=== PATIENT | female | born 2000 | race Caucasian/White ===

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

== ENCOUNTER → 2021-04-19 14:58 | Outpatient (CLI) | payer OTHER, SELFPAY ==
[2021-04-19 16:29] LABS: HCG,Quantitative 1382 mIU/ml (0-5.42)
== END ==
PROVIDERS: Visit Provider Obstetrics & Gynecology
DX: Z32.01 Encounter for pregnancy test, result positive (principal)
CPT/HCPCS: 36415; 84702

== ENCOUNTER → 2021-04-21 16:14 | Outpatient (CLI) | payer OTHER, SELFPAY ==
[2021-04-21 17:58] LABS: HCG,Quantitative 4087 mIU/ml (0-5.42)
== END ==
PROVIDERS: Visit Provider Obstetrics & Gynecology
DX: Z34.90 Encounter for supervision of normal pregnancy, unspecified, unspecified trimester (principal)
CPT/HCPCS: 36415; 84702

== ENCOUNTER → 2021-05-13 14:14 | Outpatient (CLI) | payer OTHER, SELFPAY ==
--- NOTE | 2021-05-13 14:14 | US_ITS ---
PROCEDURE: US OB <= 14 WEEKS FETUS CLINICAL INDICATION: dates Early Ob ultrasound COMPARISON: No exams were available for comparison FINDINGS: An intrauterine gestational sac is present with a pole with a crown-rump length of 1.78cm correlating to gestational age of 8weeks 2days. heart tones are present with an FHR of 174bpm. Yolk sac is noted. Along the cephalic portion of the gestational sac there is a crescentic fluid collection which may represent a subchorionic bleed. This area measures 5 mm in thickness and 11 mm in length. No cul-de-sac fluid apparent. Unremarkable adnexa. IMPRESSION: Live IUP at eight weeks 2 days Estimated due date by Ultrasound is 12/21/2021 Possible small subchorionic bleed Dictated by: Phu Askew MD 05/13/2021 17:02 Phu Askew MD in [place] 05/13/2021 17:02
== END ==
PROVIDERS: Visit Provider Obstetrics & Gynecology
DX: Z34.90 Encounter for supervision of normal pregnancy, unspecified, unspecified trimester (principal)
CPT/HCPCS: 76801

== ENCOUNTER → 2021-05-17 15:27 | Outpatient (CLI) | payer OTHER, SELFPAY ==
[2021-05-17 15:54] LABS: Basophils # 0.1 K/mm3 (0-0.2); Basophils % 0.6 % (0.1-2.0); Eosinophils # 0.2 K/mm3 (0.0-0.4); Eosinophils % 1.7 % (0.1-12.0); Hematocrit 37.2 % (37.0-47.0); Lymphocytes # 1.6 K/mm3 (0.7-4.5); Lymphocytes % 16.9 % (10-50); Mean Corpuscular HGB Conc 34.9 g/dL (31.8-35.4); Mean Corpuscular Hemoglobin 30.5 pg (27.0-31.2); Mean Corpuscular Volume 87.4 fl (81-99); Mean Platelet Volume 9.6 fl (7.4-10.4); Monocytes # 0.4 K/mm3 (0.1-1.0); Monocytes % 4.4 % (1.7-9.3); Neutrophils # 7.1 K/mm3 (1.8-7.8); Neutrophils % 76.4 % (37.0-80.0); Platelet Count 255 K/mm3 (142-424); Red Blood Count 4.26 M/mm3 (4.20-5.40); Red Cell Distribution Width 14.2 % (11.5-17.5); White Blood Count 9.3 K/mm3 (4.5-13.0)
[2021-05-19 08:20] LABS: HIV Screen 4th Generation wRfx Non Reactive (Non Reactive); Hepatitis B Surface Antigen Negative (Negative); Hepatitis C Antibody <0.1 s/co ratio (0.0-0.9); Rubella Antibodies, IgG 4.97 index (Immune >0.99)
[2021-05-19 10:20] LABS: Rapid Plasma Reagin Ab Titer Non Reactive (NonRea<1:1)
[2021-05-19 21:15] LABS: Neisseria gonorrhoeae, NAA Negative (Negative)
== END ==
PROVIDERS: Visit Provider Obstetrics & Gynecology
DX: Z34.90 Encounter for supervision of normal pregnancy, unspecified, unspecified trimester (principal)
CPT/HCPCS: 36415; 85025; 86592; 86703; 86762; 86850; 87340; 87380; 87491; 87591; G0432

== ENCOUNTER 2021-06-05 08:22 | Emergency (ER) | payer OTHER, SELFPAY ==
[2021-06-05 08:24] VITALS: BP 139/78; PULSE 89; RESP 16; TEMP 36.9; O2SAT 98; BMI 33.5
--- NOTE | 2021-06-05 08:41 | HMH.EDGENADL ---
ED Disposition Clinical Impression: Hematemesis Qualifiers: Nausea presence: with nausea Qualified Code(s): K92.0 - Hematemesis Disposition: Home, Self-Care Condition on Discharge: Good Additional Instructions: Pepcid as prescribed. You may continue to use Zofran as prescribed by your radioactivity technician. Follow-up with your radioactivity technician next week, call Monday to make appointment. Return emergency department if vomiting of blood persists or worsens. Prescriptions: Famotidine [Pepcid 20mg Tablet] 20 mg PO DAILY #7 tab Transmission Status: Pending to [id number] Referrals: Fabio Diamond MD [Primary Care Provider] - - Critical Care Critical Care Time: No Attestation: On 06/05/21, the high probability of a clinically significant, sudden or life threatening deterioration of the following system(s) required my full and direct attention, intervention and personal management. The time I documented below is in addition to time spent performing reported procedures but includes the following listed in this critical care notation. Medical Decision Making - Medical Records Medical records reviewed: Yes: I reviewed the patient's medical records. MR Comment: Reviewed pelvic ultrasound results 05/13/2021, live IUP 8 weeks 2 days. Reviewed office note OB visit 05/17/2021. - Ermias Inquiry Pt receiving controlled substance: No Vital Signs: 06/05/21 08:24 Temperature 98.4 F Temperature Source Oral Pulse Rate [Radial] 89 Respiratory Rate 16 Blood Pressure [Right Arm] 139/78 Blood Pressure Mean [Right Arm] 98 Blood Pressure Position [Right Arm] Sitting 02 Sat by Pulse Oximetry 98 Oxygen Delivery Method Room Air - Lab Data Lab Results 06/05/21 08:38: WBC 9.0, RBC 4.35, Hgb 13.4, Hct 39.6, MCV 91.2, MCH 30.8, MCHC 33.8, RDW 14.3, Plt Count 281, MPV 10.0, Neut % (Auto) 70.5, Lymph % (Auto) 21.1, Dawson % (Auto) 5.3, Eos % (Auto) 2.4, Baso % (Auto) 0.7, Neut # (Auto) 6.4, Lymph # (Auto) 1.9, Dawson # (Auto) 0.5, Eos # (Auto) 0.2, Baso # (Auto) 0.1 06/05/21 08:38: Sodium 137, Potassium 3.8, Chloride 102, Carbon Dioxide 21 L, Anion Gap 17.8 H, BUN 8, Creatinine 0.40 L, Estimated Creat Clear 292, Estimated GFR 201, Est GFR ( Amer) 244, Glucose 102 H, Calcium 9.2, Total Bilirubin 0.3, AST 43 H, ALT 25, Alkaline Phosphatase 89, Total Protein 7.8, Albumin 4.3, Globulin 3.5 H, Albumin/Globulin Ratio 1.2 Result diagrams: 06/05/21 08:38 06/05/21 08:38 Orders (Tests/Meds): ORDERS Category Date Time Status Urinalysis and Microscopic Stat Lab 06/05/21 08:42 Ordered Medical Decision Narrative: Hemodynamically stable. Likely gastritis or Awilda-Nelson tear. She is agreeable to starting Pepcid for short course. General Adult HPI - General Stated complaint: 11 weeks vomiting blood Time Seen by Provider: 06/05/21 08:41 Mode of Arrival: Ambulatory Limitations: No Limitations Description of Symptoms (Recalled from ER Triage Doc. by RN): to ed per pvt car with c/o vomiting blood this am x 1 pt states dark color emesis. pt a approx 11 weeks preg. G1, P0, AB0. pt c/o lt side abd pain states she has been seen by track and field coach for this pain and has had an ultrasound. pt denies any other c/o at present - History of Present Illness HPI narrative: 11 weeks Prima complains of an episode of vomiting this morning which she believes had blood in it. She describes the blood is not bright red but a brown or dark red. She thinks it was about 1 tablespoon. She only vomited once this morning. She says she also vomited last night once without blood. She says she has not had problems with vomiting during her , but takes Zofran since the beginning of for bilateral abdominal pains. No passage of blood in his stool, no melena. No fever. No diarrhea. No history of gastritis or ulcers. No history of abdominal surgeries. - Related Data Home Medications Medication Instructions Recor
[2021-06-05 08:49] LABS: Basophils # 0.1 K/mm3 (0-0.2); Basophils % 0.7 % (0.1-2.0); Eosinophils # 0.2 K/mm3 (0.0-0.4); Eosinophils % 2.4 % (0.1-12.0); Hematocrit 39.6 % (37.0-47.0); Hemoglobin 13.4 g/dL (12.2-16.2); Lymphocytes # 1.9 K/mm3 (0.7-4.5); Lymphocytes % 21.1 % (10-50); Mean Corpuscular HGB Conc 33.8 g/dL (31.8-35.4); Mean Corpuscular Hemoglobin 30.8 pg (27.0-31.2); Mean Corpuscular Volume 91.2 fl (81-99); Monocytes # 0.5 K/mm3 (0.1-1.0); Monocytes % 5.3 % (1.7-9.3); Neutrophils # 6.4 K/mm3 (1.8-7.8); Neutrophils % 70.5 % (37.0-80.0); Platelet Count 281 K/mm3 (142-424); Red Blood Count 4.35 M/mm3 (4.20-5.40); Red Cell Distribution Width 14.3 % (11.5-17.5)
[2021-06-05 08:54] LABS: Alanine Aminotransferase 25 U/L (12-78); Albumin Level 4.3 g/dl (3.5-5.0); Albumin/Globulin Ratio 1.2 (1.1-1.8); Alkaline Phosphatase 89 U/L (38-126); Anion Gap 17.8 mEq/L (5-15); Aspartate Amino Transferase 43 U/L (14-36); Bilirubin,Total 0.3 mg/dl (0.2-1.3); Blood Urea Nitrogen 8 mg/dl (7-17); Calcium 9.2 mg/dl (8.4-10.2); Carbon Dioxide 21 mmol/L (22.0-30.0); Chloride 102 mmol/L (98-107); Creatinine Clearance Estimated 292 mL/min (50-200); Estimated Glomerular Filt Rate 201 ml/min (>60); GFR (African American) 244 ML/MIN (>60); Globulin 3.5 g/dL (1.3-3.2); Glucose 102 mg/dl (74-100); Potassium 3.8 mmoL/L (3.5-5.1); Sodium 137 mmol/L (136-145); Total Protein,Serum 7.8 g/dl (6.3-8.2)
--- NOTE | 2021-06-05 09:05 | PC.NURSE ---
FHT 138
[2021-06-05 09:30] VITALS: BP 123/70; PULSE 87; RESP 16; TEMP 36.6; O2SAT 98
== END 2021-06-05 09:31 | disposition home or self-care (01) ==
PROVIDERS: Emergency Provider Emergency Medicine; PCP Internal Medicine Adolescent Medicine
DX: K92.0 Hematemesis (principal); Z3A.11 11 weeks gestation of pregnancy
CPT/HCPCS: 80053; 85025; 96374; 99282

== ENCOUNTER → 2021-08-02 15:01 | Outpatient (CLI) | payer OTHER, SELFPAY ==
--- NOTE | 2021-08-02 15:04 | US_ITS ---
PROCEDURE: US OB >= 14 WEEKS FETUS CLINICAL INDICATION: OB complete COMPARISON: US US OB <= 14 WEEKS FETUS from 05/13/2021 FINDINGS: There is a single live fetus in breech presentation. heart and body motion is noted. The placenta is posterior and grade 1. No previa or abruption. The cervix is closed measuring approximately 4 cm in length. Complete survey performed and was unremarkable on the submitted images as in PACS. No discrete anomalies identified on survey imaging by technologist. Active fetus. Three-vessel cord with satisfactory umbilical cord insertion. 4- chamber heart noted. Survey of brain & ventricles Unremarkable. Face and neck survey unremarkable. Diaphragm and chest views unremarkable. Abdomen: Both kidneys noted and unremarkable. Stomach noted and satisfactory. Spine: Survey of the spine satisfactory with no anomalies identified nor imaged. Both arms and legs noted. Amniotic Fluid: Adequate. Maternal adnexa: No significant findings. Measurements: Average ultrasound age 20weeks. Gestational Age 20weeks Estimated due date by ultrasound age 0312/20/2021. Estimated weight 332g BPD = 19weeks 6days OFD = 20weeks HC = 19weeks 1day AC = 20weeks 1day FL = 20weeks 3days Growth Percentile= 60% Heart Rate = 147bpm Cerebellum = 19weeks 6days Humerus = 20weeks 2days HC/AC is 1.1 CI is 0.78 FL/BPD is 0.73 FL/AC is 0.22 IMPRESSION: Live IUP in breech presentation with an average ultrasound age of 20 weeks. No obvious anomalies. Please see above for detail. Dictated by: Phu Askew MD 08/02/2021 16:53 Phu Askew MD in [place] 08/02/2021 16:53
== END ==
PROVIDERS: PCP Internal Medicine Adolescent Medicine; Visit Provider Obstetrics & Gynecology
DX: Z34.90 Encounter for supervision of normal pregnancy, unspecified, unspecified trimester (principal)
CPT/HCPCS: 76805

== ENCOUNTER → 2021-11-26 15:34 | Outpatient (CLI) | payer OTHER, SELFPAY | PROVIDERS: Visit Provider Obstetrics & Gynecology | DX: Z34.90 Encounter for supervision of normal pregnancy, unspecified, unspecified trimester (principal) ==

== ENCOUNTER → 2021-12-06 16:31 | Outpatient (CLI) | payer OTHER, SELFPAY | PROVIDERS: Visit Provider Obstetrics & Gynecology | DX: Z34.90 Encounter for supervision of normal pregnancy, unspecified, unspecified trimester (principal) | CPT/HCPCS: 86403 ==

== ENCOUNTER → 2021-12-09 08:00 | Outpatient (CLI) | payer OTHER, SELFPAY ==
[2021-12-09 10:24] LABS: Collection Time,Urine 24 hours; Total Volume,Urine 950 mL (600-1600)
[2021-12-09 12:11] LABS: Creatinine 24 Hour,Urine 1292 mg/24hr (630-2500); Creatinine,Urine Random 136 mg/dL (Not Estab.)
[2021-12-09 12:50] LABS: Total Protein 24 Hour,Urine 247 mg/24 hr (40-90)
[2021-12-09 18:02] LABS: Creatinine Clearance Urine 244.6 mL/min (25-115); Patient Height,Urine 62 inches; Patient Weight,Urine 130 lbs
== END ==
PROVIDERS: Visit Provider Obstetrics & Gynecology
DX: Z34.90 Encounter for supervision of normal pregnancy, unspecified, unspecified trimester (principal)
CPT/HCPCS: 36415; 82575; 84155

== ENCOUNTER → 2021-12-09 08:02 | Outpatient (CLI) | payer OTHER, SELFPAY ==
--- NOTE | 2021-12-09 08:24 | US_ITS ---
FINAL REPORT CLINICAL HISTORY: BPP, Growth and ESA FINDINGS: There is a single live intrauterine gestation. Presentation is cephalic. The cervix is closed and measures 3.3 cm. Placenta is posterior and grade 2 fundal. Cardiac activity is confirmed at 163 bpm. Fetus is active. Four-chamber heart is noted. Chest and diaphragm are unremarkable. ESA: 10 cm. Amniotic fluid is echogenic of uncertain etiology. This could be seen with meconium staining. MEASUREMENTS: ULTRASOUND AGE: 38 weeks 4 days. GESTATION AGE: 38 weeks 2 days. ESTIMATED WEIGHT: 7 lbs. 11 oz. GROWTH PERCENTILE: 67% BPD: 38 weeks 4 days. OFD: 39 weeks 3 days. HC: 37 weeks 4 days. AC: 38 weeks 0 days. FL: 39 weeks 6 days. HC/AC: 0.97 CI: 83% FL/BPD: 82% FL/AC: 23% BREATHIN/2 MOVEMENT: 2/2 TONE: 2/2 FLUID VOLUME: 2/2 BPP SCORE: 2/2 IMPRESSION: Single living IUP with an ultrasound age of 38 weeks 4 days. BPP SCORE: 8/8 Reviewed, Interpreted and Dictated by Armani Harvey III, MD Transcribed by Angie Peña Authenticated by Armani Harvey III, MD on 12/09/2021 11:38:27 AM [facility]
[2021-12-09 10:57] LABS: Basophils # 0.1 K/mm3 (0-0.2); Basophils % 0.6 % (0.1-2.0); Eosinophils # 0.1 K/mm3 (0.0-0.4); Eosinophils % 1.1 % (0.1-12.0); Hematocrit 34.1 % (37.0-47.0); Hemoglobin 10.9 g/dL (12.2-16.2); Lymphocytes # 1.8 K/mm3 (0.7-4.5); Lymphocytes % 19.7 % (10-50); Mean Corpuscular HGB Conc 31.9 g/dL (31.8-35.4); Mean Corpuscular Volume 90.9 fl (81-99); Mean Platelet Volume 11.1 fl (7.4-10.4); Monocytes # 0.6 K/mm3 (0.1-1.0); Monocytes % 6.9 % (1.7-9.3); Neutrophils # 6.7 K/mm3 (1.8-7.8); Neutrophils % 71.8 % (37.0-80.0); Platelet Count 202 K/mm3 (142-424); Red Blood Count 3.76 M/mm3 (4.20-5.40); Red Cell Distribution Width 15.9 % (11.5-17.5); White Blood Count 9.3 K/mm3 (4.8-10.8)
[2021-12-09 11:04] LABS: D-Dimer 1.33 ug/mL (0.0-0.5)
[2021-12-09 11:19] LABS: Activated Partial Thrombo Time 22.5 seconds (22.8-30.6); Fibrinogen 403 mg/dL (229.9-363.5); INR 0.86 (0.9-1.1); Prothrombin Time 9.8 seconds (10.1-12.5)
[2021-12-09 11:37] LABS: Alanine Aminotransferase 14 U/L (12-78); Anion Gap 10.2 mEq/L (5-15); Aspartate Amino Transferase 26 U/L (14-36); Blood Urea Nitrogen 8 mg/dl (7-17); Calcium 9.1 mg/dl (8.4-10.2); Carbon Dioxide 23 mmol/L (22.0-30.0); Chloride 105 mmol/L (98-107); Estimated Glomerular Filt Rate 156 ml/min (>60); GFR (African American) 188 ML/MIN (>60); Glucose 92 mg/dl (74-100); Potassium 4.2 mmoL/L (3.5-5.1); Sodium 134 mmol/L (136-145)
[2021-12-09 12:39] LABS: Amphetamine/Metha Screen,Urine Negative ng/ml (<1000)
[2021-12-09 12:40] LABS: Barbiturates Screen,Urine Negative ng/ml (<200); Benzodiazepines Screen,Urine Negative ng/ml (<200)
[2021-12-09 12:41] LABS: Cannabinoid Screen,Urine Negative ng/ml (<50)
[2021-12-09 12:42] LABS: Cocaine Screen,Urine Negative ng/ml (<300); Methadone Screen,Urine Negative ng/ml (<300)
[2021-12-09 12:43] LABS: Opiate Screen,Urine Negative ng/ml (<300)
[2021-12-09 12:44] LABS: Phencyclidine Screen,Urine Negative ng/ml (<25)
== END ==
PROVIDERS: PCP Internal Medicine Adolescent Medicine; Visit Provider Obstetrics & Gynecology
DX: Z34.90 Encounter for supervision of normal pregnancy, unspecified, unspecified trimester (principal)
CPT/HCPCS: 36415; 76816; 76819; 80048; 80305; 84450; 84460; 84550; 85025; 85378; 85384; 85610; 85730; 86850; C9803; U0003; U0005

== ENCOUNTER 2021-12-10 08:34 | Inpatient (IN) | payer OTHER, SELFPAY ==
[2021-12-10] VITALS (8 sets, daily range): BP systolic 133–152; BP diastolic 79–93; PULSE 79–110; RESP 14–18; TEMP 36.8–37.4; O2SAT 98–100; BMI 43.9; BMI 44.2
[2021-12-10 08:57] LABS: Coronavirus 19, PCR Not Detected (NotDetected); Influenza A, PCR Not Detected (NotDetected); Influenza B, PCR Not Detected (NotDetected)
--- NOTE | 2021-12-10 10:27 | HMH.HP ---
*Admission Date: 12/10/21 *Chief complaint: scheduled delivery *History of present illness: 21 yo G1 @ 38 3 admitted for scheduled delivery complicated by GHTN transitioning into preeclampsia Pelvic exam extremely narrow and incompatible with vaginal delivery Pre-admission covid testing positive, but testing negative today at admission [facility] History I have reviewed the patient's past medical history: Yes *Have you ever received a pneumonia vaccine?: No *Have you received a flu vaccine this season?: No Anesthesia experience/problems:: nac Laterality Cases: Bilateral: Tonsillectomy Other Surgeries: Yes: No Previous Surgery. No: Amputation: No Fractures: No - *Social History Smoking Status: Never smoker Alcohol Intake: never Substance Use Type: denies use *Occupational Status:: unemployed *Travel in the last 8 weeks: None Family Hx:: No significant family history, Diabetes, Heart Attack, Stroke, Hypertension, Hyperlipidemia, Coronary Artery Disease : 1 Para: 0 Review of Systems - Review of Systems Review of systems:: pertinent systems reviewed and negative unless documented below - *Genitourinary Reports other (irregular contractions) Meds Home Medications Medication Instructions Recorded Confirmed Type promethazine 12.5 mg tablet 12.5 mg PO Q4-6H PRN #30 tab 06/18/21 12/10/21 Rx Vit Calc,Iron,Folic [Kpn] 1 tab PO DAILY 12/10/21 12/10/21 History Allergies Allergy/AdvReac Type Severity Reaction Status Date / Time No Known Allergies Allergy Verified 12/09/21 09:21 Exam Vital signs and Labs for Last 24 Hours: Temp Pulse Resp BP Pulse Ox 99.3 F 84 16 152/93 H 98 12/10/21 12:05 12/10/21 12:05 12/10/21 12:05 12/10/21 12:05 12/10/21 09:07 Laboratory Results - last 24 hr 12/10/21 08:45: SARS-CoV-2 (PCR) Not detected, Influenza A Untype (PCR) Not detected, Influenza Type B (PCR) Not detected 12/10/21 09:30: Blood Type O Positive, Antibody Screen Negative I & O for Last 24 hours: Intake & Output 12/08/21 12/09/21 12/10/21 12/11/21 11:59 11:59 11:59 11:59 Intake Total 2200 / 2200 Balance 2199 / 0 Weight 242 lb - Constitutional no acute distress - *Routine HEENT Exam Head: Present: normocephalic Eye: Present: EOMI, PERRL ENT: Present: mucous membranes moist - *Routine Neck Exam Present: supple. Absent: lymphadenopathy - *Routine Respiratory Exam Present: CTA bilaterally - *Routine Cardiovascular Exam Present: RRR - *Routine Abdominal Exam Present: soft, normoactive bowel sounds. Absent: tenderness - *Routine Rectal Exam Rectal:: deferred - *Routine Genitalia Exam Genitalia:: normal female, deferred Comment:: narrow pelvic outlet - *Routine Extremities Exam Absent: cyanosis, clubbing, edema - *Routine Skin Exam Present: warm. Absent: rash - *Routine Neurological Exam Present: alert, oriented X3 Assessment and Plan (1) 38 weeks gestation of Status: Acute Category: Medical Code(s): Z3A.38 - 38 weeks gestation of (2) Insufficient care Problem details: large gaps between appointments 1 hr GCT not done Status: Acute Category: Medical Code(s): O09.30 - Supervision of with insufficient care, unspecified trimester (3) Gestational hypertension Status: Acute Category: Medical Code(s): O13.9 - Gestational [-induced] hypertension without significant proteinuria, unspecified trimester (4) CPD (cephalo-pelvic disproportion) Status: Acute Category: Medical Code(s): O33.9 - Maternal care for disproportion, unspecified (5) Morbid obesity with body mass index (BMI) of 40.0 or higher Status: Acute Category: Medical Code(s): E66.01 - Morbid (severe) obesity due to excess calories - Assessment and plan all Dx Assessment and Plan for all problems:: Admitted for immediate delivery via c section 24 hr urine protei
--- NOTE | 2021-12-10 11:25 | SUR.OPER ---
1046-viable infant male born at this time
--- NOTE | 2021-12-10 12:03 | P.PN_ITS ---
[facility] Anesthesia Checklist - Patient Identification Patient Identification: Arm Band - Structural Data Admitted From: Home Planned Operative Procedure/s: Primary C/S Consent for Planned Operative Procedure(s) Verified: Yes Verified Documents: Surgical Consent, History and Physical - NPO Status Verified Time NPO: 00:00 - Additional verifications Anesthesia Reactions: No - Airway Assessment C-Spine Mobility Assessed: Yes (mp2) TMJ Mobility Assessed: Yes Dentition: Good Dentition - Neurological Assessment Level of Consciousness: Awake, Alert - Anesthesia Plan Anesthesia Risk discussed: Yes Anesthesia Plan: Verified ASA Class: II Anesthesia Type: Spinal (with Bilateral TAP block) [facility] History I have reviewed the patient's past medical history: Yes *Have you ever received a pneumonia vaccine?: No *Have you received a flu vaccine this season?: No Anesthesia experience/problems:: nac Laterality Cases: Bilateral: Tonsillectomy Other Surgeries: No: Amputation: No Fractures: No - *Social History Smoking Status: Never smoker Alcohol Intake: never Substance Use Type: denies use *Occupational Status:: unemployed *Travel in the last 8 weeks: None Family Hx:: No significant family history, Diabetes, Heart Attack, Stroke, Hypertension, Hyperlipidemia, Coronary Artery Disease Para: 0
--- NOTE | 2021-12-10 12:04 | P.PN_ITS ---
[facility] Anesthesia Record Part I Intake, IV Amount: 2,200 Estimated blood loss (mL): 800 Urine output (mL): 200 Blood Pressure: 152/93 SaO2: 98 Pulse Rate: 84 Respiratory Rate: 16 Temperature: 99.3 F Patient is:: Drowsy, Stable Stable to PACU at:: 11:55
--- NOTE | 2021-12-10 12:51 | SUR.PHASEI ---
1210- notified of pt QBL >1000. All protocols for blood loss initiated, (New IV, and 2 units PRBS's), on hold at this time. No other interventions requested from currently. 1234- detailed report called to jony molina on Ob floor. 1236- pt left in stable condition with jony molina at this time on OB floor.
--- NOTE | 2021-12-10 13:20 | P.OP_ITS ---
Date of procedure: 12/10/21 Pre-op Diagnosis:: 1. 38 3/7 weeks 2. Gestational Hypertension 3. Cephalo-pelvic disproportion Post-op Diagnosis:: same Procedure performed:: Primary Low Transverse C Section Surgeon:: Courtney Ledbetter MD Crown Wheel Assembler(s):: Melba Briseno AEROSPACE PROJECT MANAGER:: Edy Whitehead Anesthesia: spinal Estimated blood loss (mL): 800 Operative findings:: vigorous male , vertex presentation grossly normal uterus, fallopian tubes and ovaries Operative note:: The patient was taken to the OR and spinal was administered without difficulty. She was prepped and draped in normal sterile fashion. A pfannenstiel skin incision was made with the scalpel and carried down to the fascia. The fascia was incised in the midline and sharply dissected off the rectus muscles. The muscles were in the midline and the peritoneum was entered sharply and extended bluntly. The Justin-O self retaining retractor was placed in the abdomen and a bladder flap was created. The uterus was incised in the lower uterine segment in a transverse fashion and extended bluntly. Amniotomy was performed and clear fluid noted. The was delivered in controlled fashion, without complication or shoulder dystocia. The infant was vigorous at and handed to awaiting software tools engineer for evaluation after cord clamped and cut. Cord blood was collected and a cord segment was preserved. The placenta was manually extracted and noted to be intact. The uterus was repaired with 0- vicryl in a running/locked fashion. The peritoneum was closed with 2-0 vicryl in a running fashion. The fascia was closed with #1 vicryl in a running fashion. The subcutaneous fat was closed with 2-0 vicryl in an interrupted fashion. The skin was closed with 2-0 stratafix. EBL: 800cc. The patient tolerated the procedure well. Sponge, lap, needle and instrument counts were correct x 2. TAP block was placed by anesthesia after procedure concluded. She was taken to PACU awake and in stable condition. Condition: stable Disposition: PACU Specimens:: placenta Complications:: none
--- NOTE | 2021-12-10 14:11 | HMH.ANESII ---
[facility] Anesthesia Record Part II Discharge Time: 12:35 Destination: Obstetric PACU nurse assessment reviewed?: Yes Patient Condition:: Good Anesthesia Complications:: None Swallowing reflex intact?: Yes Cyanosis?: No Blood Pressure: 140/81 Pulse Rate: 82 Temperature: 99 F Mental Status: Alert & Oriented Pain level:: 0 Nausea and/or vomitting:: None Intake, IV Amount: 0
[2021-12-10 14:30] LABS: Microscopic,Cath URINE MICROSCOPIC (MICROSCOPIC)
[2021-12-10 14:35] LABS: Appearance,Urine/Cath CLEAR (Clear); Bilirubin,Cath Negative (Negative); Blood, Urine/Cath Negative (Negative); Color,Urine/Cath YELLOW (Yellow); Glucose,Urine/Cath (UA) Negative (Negative); Ketones,Urine/Cath TRACE (Negative); Leukocyte Esterase,Cath Negative (Negative); Nitrate,Cath Negative (Negative); PH,Urine/Cath 6.5 (5.0-8.5); Protein,Urine/Cath TRACE (Negative); Urobilinogen,Cath 0.2 EU/dl (0.2)
[2021-12-10 14:45] LABS: Amphetamine/Metha Screen,Urine Negative ng/ml (<1000)
[2021-12-10 14:46] LABS: Barbiturates Screen,Urine Negative ng/ml (<200); Benzodiazepines Screen,Urine Negative ng/ml (<200)
[2021-12-10 14:47] LABS: Cannabinoid Screen,Urine Negative ng/ml (<50); Cocaine Screen,Urine Negative ng/ml (<300)
[2021-12-10 14:48] LABS: Methadone Screen,Urine Negative ng/ml (<300)
[2021-12-10 14:57] LABS: Opiate Screen,Urine Negative ng/ml (<300)
[2021-12-10 14:58] LABS: Phencyclidine Screen,Urine Negative ng/ml (<25)
--- NOTE | 2021-12-10 14:58 | HMH.PHAVTE ---
[facility] VTE Monitoring - Patient Demographics Admission date: 12/10/21 Report Date: 12/10/21 Time: 14:58 Allergies/Adverse Reactions: Patient Allergies No Known Allergies Allergy (Verified 12/09/21 09:21) Height: 1.57 m Weight: 109.769 kg Patient Problems: Current Active Problems 38 weeks gestation of (Acute) CPD (cephalo-pelvic disproportion) (Acute) Morbid obesity with body mass index (BMI) of 40.0 or higher (Acute) Gestational hypertension (Acute) Insufficient care (Acute) - Prophylaxis VTE Prophylaxis Ordered?: Yes Types of VTE Prophylaxis: IPCS Thigh High Location of Applied Device: Bilateral Lower Extremeties
[2021-12-10 18:50] LABS: Amorphous Sediment,Ur/Cath Trace /lpf; Squamous Epithelial Ur./Cath Occasional #/hpf (0-5); WBC,Urine/Cath Occasional #/hpf (0-3)
[2021-12-11 00:07] VITALS: BP 144/81; PULSE 98; RESP 18; TEMP 37; O2SAT 98
[2021-12-11 04:00] VITALS: BP 130/76; PULSE 108; RESP 18; TEMP 36.9; O2SAT 98
[2021-12-11 08:17] LABS: Hematocrit 26.6 % (37.0-47.0); Hemoglobin 8.5 g/dL (12.2-16.2)
--- NOTE | 2021-12-11 09:17 | HMH.ACPN2 ---
Internal Medicine - PN: Subj *Date: 12/11/21 *Time: 09:17 Interval history: POD #1 primary c section No unusual complaints Ambulating and voiding without difficulty Tolerating regular diet Asymptomatic with [id number] anemia Hgb dropped to 10.9 to 8.5 Exam Vital signs and Labs for Last 24 Hours: Temp Pulse Resp BP Pulse Ox 98.4 F 108 H 18 130/76 98 12/11/21 04:00 12/11/21 04:00 12/11/21 04:00 12/11/21 04:00 12/11/21 04:00 Laboratory Results - last 24 hr 12/10/21 08:45: SARS-CoV-2 (PCR) Not detected, Influenza A Untype (PCR) Not detected, Influenza Type B (PCR) Not detected 12/10/21 09:30: Blood Type O Positive, Antibody Screen Negative, Crossmatch (AHG) See Detail 12/10/21 10:30: Urine Opiates Screen Negative, Urine Methadone Screen Negative, Ur Barbituates Screen Negative, Ur Phencyclidine Scrn Negative, Ur Amphetamines Screen Negative, U Benzodiazepines Scrn Negative, Urine Cocaine Screen Negative, U Marijuana (THC) Screen Negative 12/10/21 10:30: Urine Color Yellow, Urine Appearance Clear, Urine pH 6.5, Ur Specific [place] 1.020, Urine Protein Trace, Urine Glucose (UA) Negative, Urine Ketones Trace, Urine Blood Negative, Urine Nitrate Negative, Urine Bilirubin Negative, Urine Urobilinogen 0.2, Ur Leukocyte Esterase Negative, Urine WBC Occasional, Ur Squamous Epith Cells Occasional 12/11/21 07:10: Hgb 8.5 L, Hct 26.6 L I & O for Last 24 hours: Intake & Output 12/08/21 12/09/21 12/10/21 12/11/21 11:59 11:59 11:59 11:59 Intake Total 2200 / 2200 Balance 2200 / 2200 Weight 242 lb Narrative: CONSTITUTIONAL: no acute distress HEENT: mucous membranes moist PULMONARY: breathing unlabored without audible wheezes CV: no tachycardia or visible JVD; normal LE peripheral pulses ABD: soft, ND; appropriately tender but no rebound/guarding : fundus firm at/below umbilicus SKIN: incision well approximated with no drainage, erythema or induration EXT: 1+ edema LEs NEURO: alert/oriented, no altered mental status PSYCH: appropriate mood and demeanor Assessment and Plan (1) 38 weeks gestation of Status: Acute Category: Medical Code(s): Z3A.38 - 38 weeks gestation of (2) Insufficient care Problem details: large gaps between appointments 1 hr GCT not done Status: Acute Category: Medical Code(s): O09.30 - Supervision of with insufficient care, unspecified trimester (3) Gestational hypertension Status: Acute Category: Medical Code(s): O13.9 - Gestational [-induced] hypertension without significant proteinuria, unspecified trimester (4) CPD (cephalo-pelvic disproportion) Status: Acute Category: Medical Code(s): O33.9 - Maternal care for disproportion, unspecified (5) Morbid obesity with body mass index (BMI) of 40.0 or higher Status: Acute Category: Medical Code(s): E66.01 - Morbid (severe) obesity due to excess calories (6) Anemia complicating Status: Acute Category: Medical Code(s): O99.019 - Anemia complicating , unspecified trimester (7) Delivery by section Status: Acute Category: Surgical (8) Anemia associated with acute blood loss Status: Acute Category: Medical Code(s): D62 - Acute posthemorrhagic anemia - Assessment and plan all Dx Assessment and Plan for all problems:: Routine /postop care FeSO4 for anemia
[2021-12-11 19:48] VITALS: BP 160/84; BP 167/88; PULSE 103; PULSE 94; RESP 18; TEMP 36.8; O2SAT 98
[2021-12-11 23:55] VITALS: BP 139/85; PULSE 94; RESP 18; TEMP 36.7; O2SAT 97
[2021-12-12 04:07] VITALS: BP 139/65; PULSE 95; RESP 18; TEMP 36.5; O2SAT 98
--- NOTE | 2021-12-12 13:52 | P.PN_ITS ---
Internal Medicine - PN: Subj *Date: 12/12/21 *Time: 13:52 Interval history: POD #2 primary c section No unusual complaints Tolerating regular diet ambulating and voiding without difficulty po narcotics made her too sleepy so she has been taking only tylenol and ibuprofen she reports sufficient pain control BP elevated over the past 24 hours, 140-160/70-90 will start on po labetalol for management of hypertension Exam Vital signs and Labs for Last 24 Hours: Temp Pulse Resp BP Pulse Ox 97.7 F 95 H 18 139/65 98 12/12/21 04:07 12/12/21 04:07 12/12/21 04:07 12/12/21 04:07 12/12/21 04:07 I & O for Last 24 hours: Intake & Output 12/10/21 12/11/21 12/12/21 12/13/21 10:59 10:59 11:59 11:59 Intake Total Balance Weight Narrative: CONSTITUTIONAL: no acute distress HEENT: mucous membranes moist PULMONARY: breathing unlabored without audible wheezes CV: no tachycardia or visible JVD; normal LE peripheral pulses ABD: soft, ND; appropriately tender but no rebound/guarding : fundus firm below umbilicus SKIN: incision well approximated; dressing dry/intact EXT: 1+ edema LEs NEURO: alert/oriented, no altered mental status PSYCH: appropriate mood and demeanor Assessment and Plan (1) 38 weeks gestation of Status: Acute Category: Medical Code(s): Z3A.38 - 38 weeks gestation of (2) Insufficient care Problem details: large gaps between appointments 1 hr GCT not done Status: Acute Category: Medical Code(s): O09.30 - Supervision of with insufficient care, unspecified trimester (3) Gestational hypertension Status: Acute Category: Medical Code(s): O13.9 - Gestational [- induced] hypertension without significant proteinuria, unspecified trimester (4) CPD (cephalo-pelvic disproportion) Status: Acute Category: Medical Code(s): O33.9 - Maternal care for disproportion, unspecified (5) Morbid obesity with body mass index (BMI) of 40.0 or higher Status: Acute Category: Medical Code(s): E66.01 - Morbid (severe) obesity due to excess calories (6) Anemia complicating Status: Acute Category: Medical Code(s): O99.019 - Anemia complicating , unspecified trimester (7) Delivery by section Status: Acute Category: Surgical (8) Anemia associated with acute blood loss Status: Acute Category: Medical Code(s): D62 - Acute posthemorrhagic anemia - Assessment and plan all Dx Assessment and Plan for all problems:: Started on labetalol 100mg po BID Possible discharge home tomorrow
[2021-12-12 19:53] VITALS: BP 134/71; PULSE 100; RESP 18; TEMP 36.8; O2SAT 98
[2021-12-13 00:44] VITALS: BP 135/85; PULSE 95; RESP 18; TEMP 36.7; O2SAT 98
[2021-12-13 04:10] VITALS: BP 136/80; PULSE 101; RESP 18; TEMP 36.8
[2021-12-13 08:00] VITALS: BP 145/80; PULSE 110; RESP 17; TEMP 36.6; O2SAT 96
[2021-12-13 09:54] VITALS: BP 144/74
--- NOTE | 2021-12-13 11:29 | HMH.DCSUM ---
General - General Admission date:: 12/10/21 Discharge date: 12/13/21 HPI HPI: 21 yo G1 @ 38 3/7 admitted for scheduled delivery complicated by GHTN transitioning into preeclampsia Pelvic exam extremely narrow and incompatible with vaginal delivery Pre-admission covid testing positive, but testing negative today at admission Hospital Course Hospital Course: s/p primary cs for PIH and CPD Delivery uncomplicated Postoperative course required medical management of elevated blood pressure she was started on labetalol 100mg BID She is discharged home on POD #3 in stable condition She will f/u in office in 1 week for incision check and BP check Rhogam Administration: Not Indicated Objective Vital signs: Temp Pulse Resp BP Pulse Ox 97.9 F 110 H 17 144/74 H 96 12/13/21 08:00 12/13/21 08:00 12/13/21 08:00 12/13/21 09:54 12/13/21 08:00 Narrative: CONSTITUTIONAL: no acute distress HEENT: mucous membranes moist PULMONARY: breathing unlabored without audible wheezes CV: no tachycardia or visible JVD; normal LE peripheral pulses ABD: soft, ND; appropriately tender but no rebound/guarding : fundus firm below umbilicus SKIN: incision well approximated with no drainage, erythema or induration EXT: 1+ edema LEs NEURO: alert/oriented, no altered mental status PSYCH: appropriate mood and demeanor Results Labs on day of discharge: Labs from last 24 hours 12/10/21 09:30 Crossmatch (AHG) See Detail DS: Diagnosis - Discharge Diagnosis (1) 38 weeks gestation of Status: Acute (2) Insufficient care Status: Acute Problem details: large gaps between appointments 1 hr GCT not done (3) Gestational hypertension Status: Acute (4) CPD (cephalo-pelvic disproportion) Status: Acute (5) Morbid obesity with body mass index (BMI) of 40.0 or higher Status: Acute (6) Anemia complicating Status: Acute (7) Delivery by section Status: Acute (8) Anemia associated with acute blood loss Status: Acute Discharge Plan - Patient Discharge Instructions ACTIVITY: Continue current activity DIET: regular diet Patient Instructions: Depression, Hemorrhage, DI for , DI for Pre-eclampsia, Surgical Site Infection, Preventing the Spread of Coronavirus Discharge Instructions - Follow up Plan Follow up with: Courtney Ledbetter MD [Staff Physician] - Disposition: Home, Self-Care Condition at discharge:: Stable Home Medications: Home Medications Medication Instructions Recorded Confirmed Type Vit Calc,Iron,Folic [Kpn] 1 tab PO DAILY 12/10/21 12/10/21 History Promethazine HCl 12.5 mg PO Q4HP PRN 12/10/21 12/10/21 History Ibuprofen [Motrin 400mg 800 mg PO Q6HP PRN #40 tab 12/13/21 Rx tablet] Labetalol HCl [Normodyne 100mg 100 mg PO BID #60 tab 12/13/21 Rx tablet] Oxycodone HCl [OxyIR 5mg tablet] 5 mg PO Q6HP PRN #24 tab 12/13/21 Rx Prescriptions/Medication Reconciliation: New Acetaminophen [Acetaminophen 325mg tab] 650 mg PO Q4HP PRN tab PRN Reason: Mild Pain Labetalol HCl [Normodyne 100mg tablet] 100 mg PO BID #60 tab Ferrous Sulfate [Ferrous Sulfate 325mg Tablet] 325 mg PO BID tab Oxycodone HCl [OxyIR 5mg tablet] 5 mg PO Q6HP PRN #24 tab PRN Reason: Moderate To Severe Pain Ibuprofen [Motrin 400mg tablet] 800 mg PO Q6HP PRN #40 tab PRN Reason: Mild To Moderate Pain Continued Vit Calc,Iron,Folic [Kpn] 1 tab PO DAILY Promethazine HCl 12.5 mg PO Q4HP PRN PRN Reason: nausea and vomiting - Problem Reconciliation Problems Reviewed?: Yes
--- NOTE | 2021-12-14 13:10 | CARE MANAGER ---
Contacted patient regarding follow up from hospital discharge. Patient denies any problems with incision. Has not picked up new prescriptions, but is going to today. Baby is doing well and denies any questions. LEONIE Bruce
== END 2021-12-13 12:16 | disposition home or self-care (01) | DRG 787 ==
PROVIDERS: Admitting Provider Obstetrics & Gynecology; PCP Internal Medicine Adolescent Medicine; Visit Provider Obstetrics & Gynecology
PROC: 10D00Z1 Extraction of Products of Conception, Low, Open Approach (ICD-10-PCS; CPT 59514; principal; 2021-12-10 10:15)
DX: O33.9 Maternal care for disproportion, unspecified (principal); D62 Acute posthemorrhagic anemia; O14.94 Unspecified pre-eclampsia, complicating childbirth; Z3A.38 38 weeks gestation of pregnancy; Z37.0 Single live birth; Z20.822 Contact with and (suspected) exposure to COVID-19; O99.02 Anemia complicating childbirth; O13.4 Gestational [pregnancy-induced] hypertension without significant proteinuria, complicating childbirth
CPT/HCPCS: 59514; 36415; 59025; 76816; 76819; 80048; 80305; 81001; 82575; 84155; 84450; 84460; 84550; 85014; 85018; 85025; 85378; 85384; 85610; 85730; 86850; 94761; C9290; C9803; G0283; J2405; U0003; U0005

== ENCOUNTER 2021-12-26 02:27 | Emergency (ER) | payer OTHER, SELFPAY ==
[2021-12-26 02:28] VITALS: BP 145/102; PULSE 84; RESP 18; TEMP 37.7; O2SAT 97; BMI 37.3
--- NOTE | 2021-12-26 02:55 | HMH.EDSKAF ---
ED Disposition Clinical Impression: Superficial incisional surgical site infection Disposition: Home, Self-Care Condition on Discharge: Good Instructions: DI for Skin Abscess Additional Instructions: use ontiment and call pcp/ob for follow up Referrals: Fabio Diamond MD [Primary Care Provider] - - Critical Care Critical Care Time: No Attestation: On 12/26/21, the high probability of a clinically significant, sudden or life threatening deterioration of the following system(s) required my full and direct attention, intervention and personal management. The time I documented below is in addition to time spent performing reported procedures but includes the following listed in this critical care notation. Medical Decision Making - Medical Records Medical records reviewed: Yes: I reviewed the patient's medical records. - Ermias Inquiry Pt receiving controlled substance: No Vital Signs: 12/26/21 02:28 Temperature 100 F H Temperature Source Oral Pulse Rate [Left Radial] 84 Respiratory Rate 18 Blood Pressure [Right Arm] 145/102 H Blood Pressure Mean [Right Arm] 116 02 Sat by Pulse Oximetry 97 Oxygen Delivery Method Room Air - Lab Data Lab results reviewed: Yes: I reviewed the patient's lab results. Orders (Tests/Meds): ED MEDICATIONS Generic Name Dose Route Start Last Admin Trade Name Freq PRN Reason Stop Dose Admin Mupirocin 1 gm 12/26/21 09:00 12/26/21 02:51 Mupirocin 2% Ointment 22gm Tube TP 01/25/22 08:59 1 cream BID MEHDI Administration Medical Decision Narrative: no gross dehiscene at site and no gross infection Skin/Abscess/FB HPI - General Chief complaint: Skin/Abscess/Foreign Body Stated complaint: Blood in incision Time Seen by Provider: 12/26/21 02:56 Mode of Arrival: Ambulatory Source of Information: Patient, Medical Record Limitations: No Limitations Description of Symptoms (Recalled from ER Triage Doc. by RN): PT REPORTS SHE HAD A SMEAR OF BLOOD FROM HER INCISION AND NOTICED A WEIRD SMELL. NO BLEEDING OR ODOR NOTED UPON ARRIVAL TO ED. 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 GANDHI AND SHE HAS HER NEXT FOLLOW UP ON 01/04. - History of Present Illness HPI narrative: sl blood and smell from c-sec incision w/o fever or reddness MD complaint: other (c sec incision ) Onset (ago): day(s) Severity: moderate Associated symptoms: denies other symptoms Treatments prior to arrival: none - Related Data Home Medications Medication Instructions Recorded Confirmed Vit Calc,Iron,Folic [Kpn] 1 tab PO DAILY 12/10/21 12/21/21 Previous Rx's Medication Instructions Recorded Acetaminophen [Acetaminophen 325mg 650 mg PO Q4HP PRN tab 12/13/21 tab] Ferrous Sulfate [Ferrous Sulfate 325 mg PO BID tab 12/13/21 325mg Tablet] Ibuprofen [Motrin 400mg 800 mg PO Q6HP PRN #40 tab 12/13/21 tablet] Oxycodone HCl [OxyIR 5mg tablet] 5 mg PO Q6HP PRN #24 tab 12/13/21 labetalol 100 mg tablet 100 mg PO TID #90 tab 12/21/21 Allergies Allergy/AdvReac Type Severity Reaction Status Date / Time No Known Allergies Allergy Verified 12/21/21 13:40 [facility] History - Hepatitis A Screen Drug use history?: No High risk sexual behaviors?: No History of sexually transmitted infection?: No Currently employed?: No Childcare worker?: No Do you have indoor plumbing?: Yes Do you have electricity?: Yes Attestation statement:: This patient has been screened for Hepatitis A risk factors. I have reviewed the patient's past medical history: Yes Laterality Cases: Bilateral: Tonsillectomy Other Surgeries: Yes: No Previous Surgery. No: Amputation: No Fractures: No - Social History Smoking Status: Never smoker Alcohol Intake: never Substance Use Type: denies use Occupational Status: unemployed Family Hx:: No significant family history, Diabetes, Heart Attack, Stroke, Hypertension, Hyperlipidemia, Coronary Artery Disease ROS Obtained:
[2021-12-26 03:15] VITALS: BP 136/87; PULSE 82; RESP 16; TEMP 37.6; O2SAT 99
== END 2021-12-26 03:17 | disposition home or self-care (01) ==
PROVIDERS: Emergency Provider Emergency Medicine; PCP Internal Medicine Adolescent Medicine
DX: O86.01 Infection of obstetric surgical wound, superficial incisional site (principal)
CPT/HCPCS: 99281

== ENCOUNTER 2022-01-12 20:02 | Emergency (ER) | payer OTHER, SELFPAY ==
[2022-01-12 20:59] VITALS: BP 137/73; PULSE 109; RESP 19; TEMP 37.4; O2SAT 97; BMI 36.7
--- NOTE | 2022-01-12 21:23 | HMH.EDUTC ---
[facility] [place]position Clinical Impression: Gingival hyperplasia, Gingivitis Disposition: Home, Self-Care Condition on Discharge: Good Instructions: Gingivitis, DI for Gingivitis Additional Instructions: You have to follow up with your dentist and air export logistics manager. Follow up as soon as you can, because i believe its going to take the air export logistics manager to get this resolved. Use the prescription mouth wash and take the antibiotics as directed. Follow up with your primary care physician. Make sure you are doing impeccable dental hygiene. GO TO THE ER FOR ANY WORSENING SYMPTOMS OR CONCERNS Prescriptions: Amoxicillin/Potassium Clav [Amox-Clav 875-125 mg Tablet] 1 tab PO BID #20 tab Transmission Status: Received by [id number] Chlorhexidine Gluconate 15 ml TP BID 14 Days #478 ml Transmission Status: Received by [id number] Referrals: Fabio Diamond MD [Primary Care Provider] - Time of Disposition: 21:42 Medical Decision Making - Medical Records Medical records reviewed: No: I reviewed the patient's medical records. - Ermias Inquiry Pt receiving controlled substance: No Vital Signs: 01/12/22 20:59 01/12/22 21:41 Temperature 99.3 F 99.3 F Temperature Source Oral Pulse Rate 109 H Pulse Rate [Left] 109 H Respiratory Rate 19 19 Blood Pressure 137/73 Blood Pressure [Right Arm] 137/73 Blood Pressure Mean [Right Arm] 94 02 Sat by Pulse Oximetry 97 [facility] [place] HPI - General Stated complaint: Pain in Gums Time Seen by Provider: 01/12/22 21:26 Mode of Arrival: Ambulatory Source of Information: Patient Limitations: No Limitations Description of Symptoms (Recalled from Triage Doc. by RN): pt states her dentist told her to come in because her gums are swollen. x2 days. HEENT Symptoms (Recalled from RN notes): Yes Resp Symptoms (Recalled from RN notes): No Skin Symptoms (Recalled from RN notes): No MS Symptoms (Recalled from RN notes): No Functional Status (Recalled from RN notes): wnl - History of Present Illness Provider Complaint: She has been having gum pain and irritation for the past 2 weeks. She has braces and it seems like they are irritating her gums. - Related Data Home Medications Medication Instructions Recorded Confirmed Vit Calc,Iron,Folic [Kpn] 1 tab PO DAILY 03/11/22 03/29/22 mupirocin 2 % topical ointment 1 applic TOPICAL BID 12/28/21 12/28/21 Previous Rx's Medication Instructions Recorded Acetaminophen [Acetaminophen 325mg 650 mg PO Q4HP PRN tab 12/13/21 tab] Ferrous Sulfate [Ferrous Sulfate 325 mg PO BID tab 12/13/21 325mg Tablet] Ibuprofen [Motrin 400mg 800 mg PO Q6HP PRN #40 tab 12/13/21 tablet] Oxycodone HCl [OxyIR 5mg tablet] 5 mg PO Q6HP PRN #24 tab 12/13/21 labetalol 100 mg tablet 100 mg PO TID #90 tab 12/21/21 nystatin 100,000 unit/gram topical 1 applic TOPICAL TID #30 g 12/28/21 cream nystatin 100,000 unit/gram topical 1 applic TOPICAL TID #30 g 12/28/21 powder Amoxicillin/Potassium Clav 1 tab PO BID #20 tab 01/12/22 [Amox-Clav 875-125 mg Tablet] Chlorhexidine Gluconate 15 ml TP BID 14 Days #478 ml 01/12/22 Allergies Allergy/AdvReac Type Severity Reaction Status Date / Time No Known Allergies Allergy Verified 12/28/21 16:10 - Worker's Comp Is this a Worker's Comp case?: No [facility] History - Hepatitis A Screen Drug use history?: No High risk sexual behaviors?: No History of sexually transmitted infection?: No Currently employed?: No Childcare worker?: No Do you have indoor plumbing?: Yes Do you have electricity?: Yes Attestation statement:: This patient has been screened for Hepatitis A risk factors. I have reviewed the patient's past medical history: Yes Laterality Cases: Bilateral: Tonsillectomy Other Surgeries: Yes: No Previous Surgery, Amputation: No Fractures: No - Social History Smoking Status: Never smoker Alcohol Intake: never Substance Use Type: denies use Occupation
[2022-01-12 21:41] VITALS: BP 137/73; PULSE 109; RESP 19; TEMP 37.4
== END 2022-01-12 21:46 | disposition home or self-care (01) ==
PROVIDERS: Emergency Provider Nurse Practitioner Family; PCP Internal Medicine Adolescent Medicine
DX: K05.10 Chronic gingivitis, plaque induced (principal)
CPT/HCPCS: 99212; G0463

== ENCOUNTER 2022-08-15 21:25 | Emergency (ER) | payer OTHER, SELFPAY ==
[2022-08-15 21:26] VITALS: BP 140/71; PULSE 86; RESP 16; TEMP 36.8; O2SAT 97; BMI 36.6
--- NOTE | 2022-08-15 22:57 | HMH.EDEAR ---
Discharge Plan Disposition Patient Disposition: Home, Self-Care Prescriptions Prescriptions: New prednisone [prednisone] 20 mg tablet 20 mg PO BID Qty: 10 0RF cephalexin [cephalexin] 500 mg capsule 500 mg PO TID Qty: 30 0RF loratadine [Claritin] 10 mg tablet 10 mg PO DAILY Qty: 10 0RF No Action medroxyprogesterone [Depo-Provera] 150 mg/mL suspension 150 mg IM [id number] Qty: 1 3RF Referrals Follow up/Referrals: Fabio Diamond MD [Primary Care Provider] - See instructions Clinical Impressions Clinical Impression: Otitis media Instructions Patient Instructions: Middle Ear Infection Discharge ED Provider: Valdez Stout Ear HPI General Chief complaint: Ear Stated complaint: unable to hear out of right ear Time Seen by Provider: 08/15/22 22:57 Mode of Arrival: Ambulatory Source of Information: Patient and Medical Record Limitations: No Limitations Description of Symptoms (Recalled from ER Triage Doc. by RN): pt c/o rt ear fullness x several days History of Present Illness HPI Narrative: over the last few days has rt eye pain and congestion Complaint: ear pain Location: right ear Duration: intermittent Severity: moderate Context: recent illness Discharge from ear: no Associated symptoms ear: decreased hearing Treatment prior to arrival: none Related Data Previous Rx's Medication Instructions Recorded medroxyprogesterone 150 mg/mL 150 mg IM [id number] #1 mL 07/22/22 intramuscular suspension (Depo-Provera) cephalexin 500 mg capsule 500 mg PO TID #30 caps 08/15/22 loratadine 10 mg tablet (Claritin) 10 mg PO DAILY #10 tabs 08/15/22 prednisone 20 mg tablet 20 mg PO BID #10 tabs 08/15/22 Allergies Allergy/AdvReac Type Severity Reaction Status Date / Time No Known Allergies Allergy Verified 07/25/22 11:03 PFSH PFSH Social History Smoking Status: Never smoker alcohol intake: never substance use type: denies use current occupational status: unemployed Travel in the last 8 weeks: None ROS Obtained: Yes All systems reviewed & no additional complaints except as documented Physical Exam General General appearance: alert Head Head exam: normocephalic Eye Eye exam: Present PERRL and EOMI ENT ENT exam: Present normal oropharynx Expanded ENT Exam TM/Canal exam: Right TM: erythema and effusion Neck Neck exam: Present trachea midline Respiratory Respiratory exam: Present normal lung sounds bilaterally; Absent respiratory distress Cardiovascular Cardiovascular exam: Present regular rate Extremities Exam Extremities exam: Present full ROM Neurological Exam Neurological exam: Present alert, oriented X3 and CN II-XII intact Psychiatric Psychiatric exam: Present normal affect Skin Skin exam: Absent rash Medical Decision Making Medical Records Medical records reviewed: Yes I reviewed the patient's medical records. Ermias Inquiry Pt receiving controlled substance: No Vital Signs: 08/15/22 21:26 Temperature 98.2 F Temperature Source Oral Pulse Rate [Right] 86 Respiratory Rate 16 Blood Pressure [Right Arm] 140/71 Blood Pressure Mean [Right Arm] 94 02 Sat by Pulse Oximetry 97 Lab Data Lab results reviewed: Yes I reviewed the patient's lab results. Medical Decision Narrative: pt has acute rt otitis media and will give treatment and see pcp for follow up Critical Care Time Critical Care Time Critical Care Time: No Attestation: On 08/15/22, the high probability of a clinically significant, sudden or life threatening deterioration of the following system(s) required my full and direct attention, intervention and personal management. The time I documented below is in addition to time spent performing reported procedures but includes the following listed in this critical care notation.
[2022-08-15 23:09] VITALS: BP 137/78; PULSE 80; RESP 16; TEMP 36.8; O2SAT 97
== END 2022-08-15 23:11 | disposition home or self-care (01) ==
PROVIDERS: Emergency Provider Emergency Medicine; PCP Internal Medicine Adolescent Medicine
DX: H66.91 Otitis media, unspecified, right ear (principal); H57.11 Ocular pain, right eye; Z79.52 Long term (current) use of systemic steroids; Z79.899 Other long term (current) drug therapy
CPT/HCPCS: 99283

== ENCOUNTER 2025-07-17 09:20 | Outpatient (CLI) | payer OTHER, SELFPAY ==
[2025-07-21 17:36] LABS: Neisseria gonorrhoeae, NAA Negative (Negative)
== END 2025-07-17 23:59 ==
LOC: LAB.DROPOF 07-21 12:17
PROVIDERS: PCP Obstetrics & Gynecology; Visit Provider Obstetrics & Gynecology
DX: Z30.430 Encounter for insertion of intrauterine contraceptive device (principal)
CPT/HCPCS: 87491; 87591